=== PATIENT | male | born 1990 | race Caucasian/White ===

== ENCOUNTER 2024-02-08 11:59 | Emergency (ER) | payer OTHER ==
[2024-02-08] MEDS: Diphtheria,Pertussis(Acell),Tetanus Vaccine 0.5 ML Syringe IM ONE (12:51)
== END 2024-02-08 14:05 | disposition home or self-care (01) ==
LOC: MW.ED 11:59
DX: S67.191A Crushing injury of left index finger, initial encounter (principal); Z88.0 Allergy status to penicillin; Z75.8 Other problems related to medical facilities and other health care; X58.XXXA Exposure to other specified factors, initial encounter
CPT/HCPCS: 73130-26-LT; 73130-LT; 99282; 99283